=== PATIENT | male | born 1960 | race Caucasian/White ===

== ENCOUNTER 2021-08-19 09:06 | Emergency (ER) | payer OTHER ==
[2021-08-19] MEDS ORDERED: Ketorolac Tromethamine 30 MG/ML VIAL ONE (09:52)
[2021-08-19] MEDS ORDERED: Acetaminophen 500 MG TAB ONE (09:53)
[2021-08-19] MEDS ORDERED: Orphenadrine Citrate 60 MG/2 ML VIAL IM SCH (10:00)
== END 2021-08-19 11:03 | disposition home or self-care (01) ==
LOC: CSHERS 09:06
DX: S16.1XXA Strain of muscle, fascia and tendon at neck level, initial encounter (principal); V43.63XA Car passenger injured in collision with pick-up truck in traffic accident, initial encounter
CPT/HCPCS: 72125; 96372; J1885; J2360

== ENCOUNTER 2021-08-20 10:41 | Emergency (ER) | payer OTHER ==
[2021-08-20] MEDS ORDERED: Ketorolac Tromethamine 30 MG/ML VIAL ONE (11:55)
[2021-08-20] MEDS ORDERED: Morphine 4 MG/ML VIAL ONE ×2 (11:55→13:41)
[2021-08-20] MEDS ORDERED: Diazepam 10 MG/2 ML SYRINGE ONE (11:56)
== END 2021-08-20 13:48 | disposition home or self-care (01) ==
LOC: CSHERS 10:41
DX: M54.12 Radiculopathy, cervical region (principal); M48.02 Spinal stenosis, cervical region; F17.200 Nicotine dependence, unspecified, uncomplicated; V49.60XA Unspecified car occupant injured in collision with unspecified motor vehicles in traffic accident, initial encounter
CPT/HCPCS: 70450; 72128; 93005; 96374; 96375; 96376; J1885; J2270; J3360

== ENCOUNTER 2021-08-24 20:43 | Emergency (ER) | payer SELFPAY ==
[2021-08-24] MEDS ORDERED: Ketorolac Tromethamine 30 MG/ML VIAL ONE (23:58)
== END 2021-08-25 00:35 | disposition left against medical advice (07) ==
LOC: CSHERS 20:43
DX: R51.9 Headache, unspecified (principal); S16.1XXD Strain of muscle, fascia and tendon at neck level, subsequent encounter; V49.59XD Passenger injured in collision with other motor vehicles in traffic accident, subsequent encounter
CPT/HCPCS: 70450; J1885